=== PATIENT | male | born 1930 | race Caucasian/White ===

== ENCOUNTER 2017-09-10 10:48 | Inpatient (IN) | payer MEDICARE, OTHER ==
[~2017-09-10] VITALS: Ht 175.3 cm; Wt 61.1 kg
--- NOTE | ~2017-09-10 | EC ---
PATIENT:MICA CURRY DATE OF SERVICE: 09/10/17 SEX: M MEDICAL RECORD: [id number] DATE OF : [birth year] LOCATION:[address]. [address]213 AGE OF PATIENT: 87 ADMISSION DATE: 09/10/17 REFERRING PHYSICIAN: INTERPRETING PHYSICIAN: GEOVANNA GRANDA MD ECHOCARDIOGRAM REPORT ECHO CHARGES 5 ECHO LIMITED CLINICAL DIAGNOSIS: CHEST PAIN HX OF ICD/CAD/STENT ECHOCARDIOGRAPHIC MEASUREMENTS (adult normal given) AC root (d.<3.7cm) cm LV Septum d (<1.2 cm> cm Valve Excursion cm LV Septum (systole) cm Left Atria (s.<4.0cm> cm LVPW d(<1.2cm) cm RV (d.<2.3cm) 3.9 cm LVPW (sytole) cm LV diastole(<5.6CM) 5.3 cm MV E-F(>70mm/sec) cm LV systole 4.4 cm LVOT Diameter cm MV exc.(>10mm) cm Est.ejection fraction (50-75%) % Pericardial Effusion N DOPPLER: LVIT cm/sec A cm/sec E cm/sec LA cm/sec RVSP mmHg LVOT cm/sec AOP1/2T m/s Asc. Ao cm/sec RVOT cm/sec RA cm/sec PA cm/sec AV Gradient Peak mmHg AV Mean mmHg AV Area cm MV Gradient Peak mmHg MV Mean mmHg MV Area cm COMMENTS: Heater Room Helper: Aditi HAILE Welding Production Supervisor: 4 Dr. Granda TAPE# PACS DATE OF SERVICE: 09/10/2017 This is a transthoracic echocardiogram. Extremely limited views. In fact, this is not an interpretable echocardiogram. We will try to repeat the study with contrast if needed. TRANSINT:[id number] Voice Confirmation ID: [id number] DOCUMENT ID: [id number] ECHOCARDIOGRAM REPORT [id number] MICA CURRY GEOVANNA GRANDA MD at [id number] CC: [id number] DICTATION DATE: 09/10/17 1536 HUMAN RESOURCES DESIGNATE: 09/10/17 1615 ADM IN [place] [id number] [place] [address]
--- NOTE | ~2017-09-10 | HP ---
PATIENT: MICA CURRY MEDICAL RECORD: [id number] ACCOUNT: [id number] LOCATION:[address] : [birth year] ADMISSION DATE: 09/10/17 HISTORY AND PHYSICAL EXAMINATION DATE OF ADMISSION: 09/10/2017. REASON FOR ADMISSION: Tachycardia, fatigue, weakness, increased shortness of breath. HISTORY OF PRESENT ILLNESS: This is an 87-year-old white male followed by Dmitry Allan. He has a history of hyperlipidemia, hypertension, coronary artery disease, and has had tachycardia now for over a week. He saw Dr. Fry on 09/05/2017 and was started on amiodarone. He states he had been on amiodarone in the past. He has been having increased shortness of breath and fast heart rate now for a couple of weeks or more. He was out with a friend looking at [place] for his , who has dementia and he started having worsening shortness of breath, he stated he just could not walk any further. He was brought to the ER, his heart rate was 121, blood pressure was normal. EKG showed a heart rate of 123 with undetermined rhythm. Chest x-ray shows small bilateral pleural effusion and his proBNP was 23,554. Troponin was elevated at 1.167, BUN was 56 and creatinine 2.1, so I am not sure what his baseline is. He is admitted for further evaluation. PAST MEDICAL AND SURGICAL HISTORY: He has hyperlipidemia, hypertension, history of coronary artery disease and has had one stent placed. He has a defibrillator/pacemaker initially placed at [facility] and then replaced over 2 years ago at [facility] that is his only surgery. ALLERGIES: None known. HOME MEDICATIONS: Carvedilol 12.5 mg twice a day, Lipitor 40 mg once a day, Claritin 10 mg once a day. HABITS: He never smoked cigarettes. He did smoke cigars for a few years and quit long time ago. He does admit to drinking some alcohol, no illegal drugs. SOCIAL HISTORY: He is , retired from [employer] years ago. FAMILY HISTORY: Father at 94 of old age. Mother at 91 of complications of heart disease. REVIEW OF SYSTEMS: GENERAL: No major weight changes. HEENT: No particular sinus or allergy problems. RESPIRATORY: No history or diagnosis of asthma or emphysema. CARDIAC: followed by Dr. Fry with history of coronary artery disease and arrhythmias, most likely atrial fibrillation. He has a pacemaker/defibrillator. GASTROINTESTINAL: No significant problems there. GENITOURINARY: No significant problems there. MUSCULOSKELETAL: No significant arthritis. NEUROLOGIC: No migraines or diagnosis of dementia. PSYCHIATRIC: No depression or melancholia. PHYSICAL EXAMINATION: HISTORY AND PHYSICAL [id number] ANTOINETTE,MICA Tabitha VITAL SIGNS: Temperature 97.5, pulse 125, respirations 16, blood pressure 114/79, O2 sat 96%. The patient is awake and alert, does not appear in acute distress at this time. HEENT: Grossly within normal limits. NECK: Supple. No bruits. HEART: Tachycardia with irregular rhythm and II-III/ murmur is appreciated. LUNGS: Fairly clear. ABDOMEN: Soft, flat, nontender. EXTREMITIES: No edema. NEUROLOGIC: Intact. DIAGNOSTIC DATA: EKG shows demand pacemaker with undetermined rhythm, heart rate 123. Chest x-ray: Small bilateral pleural effusions. ProBNP 23,554 and troponin 1.167 and the second reading is 1.052. Basic metabolic panel is okay except BUN 56, creatinine 2.1, glucose 171, calcium 9.7. Liver functions were all okay. CBC with a white count of 10,900, hemoglobin 11.4, hematocrit 35. Echo was done and this was "not an interpretable echocardiogram." ASSESSMENT: Fatigue, weakness, tachycardia with uncertain rhythm, CHF, renal insufficiency with a baseline creatinine not known. PLAN: Get serial cardiac enzymes. Cardiology has been consulted. We will check thyroid studies. We will give some IV fluids. Other tests and procedures as warranted. TRANSINT:[id number] Voice Confirmation ID: [id number] DOCUMENT ID: [id number] CEDRICK REN MD at 0041 CC: [id number] DICTATION DATE: 09/10/172041 STILL PHOTOGRAPHER: 09/10/17 2305 ADM IN [place] [id number] [place] [id number]
[2017-09-10 11:24] LABS: BASOPHILS 0.2 % (0-2); EOSINOPHILS 0.8 % (0-7); HEMOGLOBIN 11.4 g/dL (13.5-17.5); IMMATURE GRANULOCYTES 0.3 % (0-5); LYMPHOCYTES 22.9 % (15-50); MCH 31.8 pg (26.0-34.0); MCHC 32.6 g/dL (31.0-37.0); MCV 97.8 fL (80.0-100.0); MEAN PLATELET VOLUME 11.1 fL (7.4-10.4); MONOCYTES 7.7 % (2-11); NEUTROPHILS 68.1 % (40-80); PLATELET COUNT 144 10x3/uL (130-400); RBC 3.58 10x6/uL (4.20-6.10); RDW 14.1 % (11.5-14.5); WBC 10.9 10x3/uL (4.8-10.8)
[2017-09-10 11:42] LABS: ALBUMIN 3.8 g/dL (3.4-5.0); ANION GAP 15.9 mmol/L (8-16); BILIRUBIN - TOTAL 1.3 mg/dL (0.2-1.3); CALCIUM 9.7 mg/dL (8.5-10.1); CARBON DIOXIDE 25.8 mmol/L (21.0-32.0); CREATININE - SERUM 2.1 mg/dL (0.6-1.3); POTASSIUM - SERUM 4.7 mmol/L (3.5-5.1); PROTEIN - SERUM 7.5 g/dL (6.4-8.2)
[2017-09-10 12:02] LABS: TROPONIN-I 1.167 ng/mL (0.000-0.060)
[2017-09-10 14:33] LABS: CKMB 1.8 U/L (0.0-3.6); CREATINE KINASE 110 UL (21-232)
[2017-09-10 14:35] LABS: TROPONIN-I 1.052 ng/mL (0.000-0.060)
[2017-09-10 17:40] VITALS: BP 114/79; BMI 19.8
[2017-09-10] MEDS ORDERED: CLARITIN 10 MG10 MG PO (17:58)
[2017-09-10] MEDS ORDERED: ALDACTONE25 MG PO (17:58)
[2017-09-10] MEDS ORDERED: BAYER CHEWABLE81 MG PO (17:59)
[2017-09-10] MEDS ORDERED: SYNTHROID75 MCG PO (17:59)
[2017-09-10] MEDS ORDERED: CENTRUM COMPLE1 EACH PO (17:59)
[2017-09-10] MEDS ORDERED: OMEPRAZOLE20 M1 PO (18:00)
[2017-09-10] MEDS ORDERED: COREG12.5 MG PO (18:01)
[2017-09-10] MEDS ORDERED: LIPITOR40 MG PO (18:57)
[2017-09-10] MEDS ORDERED: PACERONE200 MG PO (18:57)
[2017-09-10 19:00] VITALS: BP 89/71
[2017-09-10 20:40] LABS: CKMB 2.3 U/L (0.0-3.6); CREATINE KINASE 121 UL (21-232)
[2017-09-10 20:43] LABS: TROPONIN-I 1.104 ng/mL (0.000-0.060)
[2017-09-11 04:00] VITALS: BP 95/78
[2017-09-11 07:17] LABS: BASOPHILS 0.1 % (0-2); EOSINOPHILS 1.9 % (0-7); HEMATOCRIT 34.4 % (42.0-54.0); HEMOGLOBIN 11.3 g/dL (13.5-17.5); IMMATURE GRANULOCYTES 0.1 % (0-5); LYMPHOCYTES 19.5 % (15-50); MCH 31.8 pg (26.0-34.0); MCHC 32.8 g/dL (31.0-37.0); MCV 96.9 fL (80.0-100.0); MEAN PLATELET VOLUME 10.9 fL (7.4-10.4); MONOCYTES 9.5 % (2-11); NEUTROPHILS 68.9 % (40-80); RBC 3.55 10x6/uL (4.20-6.10)
[2017-09-11 07:18] LABS: PLATELET COUNT 101 10x3/uL (130-400); WBC 6.9 10x3/uL (4.8-10.8)
[2017-09-11 08:02] LABS: CALCIUM 9.2 mg/dL (8.5-10.1); CREATININE - SERUM 1.9 mg/dL (0.6-1.3); T4 THYROXIN - FREE 1.74 ng/dL (0.76-1.46); THYROID STIMULATING HORMONE 4.36 uIU/mL (0.36-3.74)
[2017-09-11 08:03] LABS: TROPONIN-I 1.2 ng/mL (0.000-0.060)
[2017-09-11 08:08] LABS: ANION GAP 14.3 mmol/L (8-16); CARBON DIOXIDE 28.4 mmol/L (21.0-32.0)
[2017-09-11 08:09] LABS: POTASSIUM - SERUM 3.7 mmol/L (3.5-5.1)
[2017-09-11 08:11] VITALS: BP 113/85
[2017-09-11 08:16] VITALS: Ht 175.3 cm; Wt 61.1 kg
[2017-09-11 12:29] VITALS: BP 99/62
[2017-09-11 16:11] VITALS: BP 108/71
[2017-09-11 23:33] VITALS: BP 106/66
[2017-09-12 04:24] VITALS: BP 116/71
[2017-09-12 04:57] LABS: BASOPHILS 0.2 % (0-2); EOSINOPHILS 4.9 % (0-7); HEMOGLOBIN 11.1 g/dL (13.5-17.5); IMMATURE GRANULOCYTES 0.2 % (0-5); LYMPHOCYTES 38.3 % (15-50); MCH 31.6 pg (26.0-34.0); MCHC 32.6 g/dL (31.0-37.0); MCV 96.9 fL (80.0-100.0); MEAN PLATELET VOLUME 10.7 fL (7.4-10.4); MONOCYTES 10.6 % (2-11); NEUTROPHILS 45.8 % (40-80); PLATELET COUNT 108 10x3/uL (130-400); RBC 3.51 10x6/uL (4.20-6.10)
[2017-09-12 05:02] LABS: WBC 5.1 10x3/uL (4.8-10.8)
[2017-09-12 05:09] LABS: ANION GAP 11.3 mmol/L (8-16); CALCIUM 8.4 mg/dL (8.5-10.1); CARBON DIOXIDE 29.9 mmol/L (21.0-32.0); CREATININE - SERUM 1.8 mg/dL (0.6-1.3); POTASSIUM - SERUM 3.2 mmol/L (3.5-5.1)
[2017-09-12 07:56] VITALS: BP 99/68
[2017-09-12 12:02] VITALS: BP 107/68
[2017-09-12 16:04] VITALS: BP 105/66
[2017-09-12 20:51] VITALS: BP 108/69
[2017-09-13 00:29] VITALS: BP 105/76; BP 128/46
[2017-09-13 04:17] VITALS: BP 107/68
[2017-09-13 06:29] LABS: BASOPHILS 0.2 % (0-2); HEMOGLOBIN 11.4 g/dL (13.5-17.5); LYMPHOCYTES 35.4 % (15-50); MCH 31.4 pg (26.0-34.0); MCHC 32.6 g/dL (31.0-37.0); MCV 96.4 fL (80.0-100.0); MEAN PLATELET VOLUME 10.1 fL (7.4-10.4); MONOCYTES 10.5 % (2-11); NEUTROPHILS 48.9 % (40-80); PLATELET COUNT 124 10x3/uL (130-400); RBC 3.63 10x6/uL (4.20-6.10); RDW 13.6 % (11.5-14.5)
[2017-09-13 06:56] LABS: ANION GAP 13.5 mmol/L (8-16); CALCIUM 8.7 mg/dL (8.5-10.1); CARBON DIOXIDE 26.8 mmol/L (21.0-32.0); CREATININE - SERUM 1.7 mg/dL (0.6-1.3); POTASSIUM - SERUM 3.3 mmol/L (3.5-5.1)
[2017-09-13 08:00] VITALS: BP 114/75
[2017-09-13] MEDS ORDERED: LANOXIN125 MCG PO (10:28)
[2017-09-13] MEDS ORDERED: SYNTHROID25 MCG PO (10:29)
[2017-09-13 12:00] VITALS: BP 99/65
== END 2017-09-13 15:15 | disposition home health service (06) | DRG 281 ==
LOC: D.ER 10:48 → D.M2 14:09 → D.SDCHOLD 14:09 → D.M2 14:56
PROVIDERS: Emergency Medicine; Family Medicine
DX: I21.4 Non-ST elevation (NSTEMI) myocardial infarction (principal); I50.32 Chronic diastolic (congestive) heart failure; I48.91 Unspecified atrial fibrillation; I11.0 Hypertensive heart disease with heart failure; E78.5 Hyperlipidemia, unspecified; I25.10 Atherosclerotic heart disease of native coronary artery without angina pectoris; Z95.5 Presence of coronary angioplasty implant and graft; Z95.810 Presence of automatic (implantable) cardiac defibrillator

== ENCOUNTER 2017-09-17 11:56 | Emergency (ER) | payer MEDICARE, OTHER ==
[2017-09-11 08:16] VITALS: BMI 19.8
[~2017-09-17 11:56] MED LIST: ALDACTONE25 MG PO; BAYER CHEWABLE81 MG PO; CENTRUM COMPLE1 EACH PO; CLARITIN 10 MG10 MG PO; COREG12.5 MG PO; LANOXIN125 MCG PO; LIPITOR40 MG PO; OMEPRAZOLE20 M1 PO; PACERONE200 MG PO; SYNTHROID25 MCG PO; SYNTHROID75 MCG PO
[2017-09-17 13:27] LABS: BASOPHILS 0.2 % (0-2); EOSINOPHILS 3.7 % (0-7); HEMATOCRIT 35.7 % (42.0-54.0); HEMOGLOBIN 11.6 g/dL (13.5-17.5); IMMATURE GRANULOCYTES 0.2 % (0-5); MCH 31.6 pg (26.0-34.0); MCHC 32.5 g/dL (31.0-37.0); MCV 97.3 fL (80.0-100.0); MEAN PLATELET VOLUME 10.1 fL (7.4-10.4); MONOCYTES 8.9 % (2-11); PLATELET COUNT 117 10x3/uL (130-400); RBC 3.67 10x6/uL (4.20-6.10); RDW 13.7 % (11.5-14.5); WBC 4.8 10x3/uL (4.8-10.8)
[2017-09-17 13:39] LABS: ALBUMIN 3.7 g/dL (3.4-5.0); BILIRUBIN - TOTAL 0.69 mg/dL (0.2-1.3); CALCIUM 9.6 mg/dL (8.5-10.1); CARBON DIOXIDE 30.3 mmol/L (21.0-32.0); CREATININE - SERUM 1.4 mg/dL (0.6-1.3); POTASSIUM - SERUM 4.3 mmol/L (3.5-5.1)
[2017-09-17 13:49] LABS: DIGOXIN 1.06 ng/mL (0.90-2.00); MAGNESIUM - SERUM 2.3 mg/dL (1.8-2.4); THYROID STIMULATING HORMONE 4.41 uIU/mL (0.36-3.74); TROPONIN-I 0.048 ng/mL (0.000-0.060)
== END 2017-09-17 15:06 | disposition home or self-care (01) ==
LOC: D.ER 11:56
PROVIDERS: Emergency Medicine
DX: I49.9 Cardiac arrhythmia, unspecified (principal); N17.9 Acute kidney failure, unspecified; E86.0 Dehydration; D64.9 Anemia, unspecified; I50.9 Heart failure, unspecified; I49.3 Ventricular premature depolarization